=== PATIENT | male | born 1980 | race Caucasian/White ===

== ENCOUNTER 2021-02-28 16:52 | Emergency (ER) | payer BC, MEDICAID, SELFPAY ==
[2021-02-28 17:07] VITALS: BP 131/77; PULSE 66; RESP 16; TEMP 36.2; O2SAT 96; BMI 34.1
--- NOTE | 2021-02-28 17:43 | ED_ITS ---
HPI - Dental/Oral General: Chief complaint: Dental/Oral Stated complaint: Mouth/Tooth Pain Time Seen by Provider: 02/28/21 17:14 History of Present Illness: HPI Narrative: Patient is a 40-year-old male who comes to the ED with dental pain. Symptoms have been going on for couple weeks now. Yesterday started developing some right mandible swelling and today woke up and had more swelling on the right side of face. Dental pain is located around tooth #31 and 30. He rates the dental pain about a 7 out of 10. He has seen a dentist about his dental pain a couple weeks ago and they set up an appointment for him to have dental abscess removed early in April. When the facial swelling popped up yesterday called around and the dentist told him to go to the ED to get put on some antibiotics. Associated symptoms: Denies fever(s) or odynophagia Review of Systems Const: Denies: fever(s), chills or fatigue Eyes: Denies: change in vision or eye discomfort ENMT: Reports: dental pain; Denies: throat pain, odynophagia, nasal discharge or nasal congestion Card: Denies: chest pain, palpitations, edema, swelling of feet/ankles, dyspnea on exertion or orthopnea Resp: Denies: dyspnea, productive cough or non-productive cough GI: Denies: abdominal pain, nausea, vomiting, diarrhea, constipation or hematochezia : Denies: flank pain, difficulty urinating, dysuria or hematuria Musc: Denies: neck pain, back pain or extremity swelling Skin/Breast: Denies: rash or new lesions Neuro: Denies: headache(s), numbness in extremities or weakness in extremities [facility] ED PFSH: Social History Smoking and tobacco status: never smoked Physical Exam Const: COMMON NORMALS: no acute distress, patient oriented x3, healthy appearing and alert GENERAL APPEARANCE: cooperative and comfortable HENMT: COMMON NORMALS: normocephalic HEAD & SCALP: normocephalic FACE & SINUS: edema on the right mandible MOUTH: Normal oral and palatal mucosa present TEETH & GINGIVA: Yes caries (Dental caries around tooth #30 and 31.) THROAT: posterior oropharynx normal and uvula midline Neck/C-Spine: COMMON NORMALS: supple GENERAL: Yes normal visual inspection Resp: COMMON NORMALS: normal respiratory effort, No retractions, No use of accessory muscles and clear to auscultation bilaterally AUSCULTATION: clear to auscultation bilaterally Cardio: COMMON NORMALS: regular rate, regular rhythm, S1 normal heart sound present, S2 normal heart sound present, No gallops present (Cardio), No clicks present (Cardio), No murmurs present (Cardio) and Peripheral pulses 2+ throughout RATE: regular rate RHYTHM: regular rhythm HEART SOUNDS: S1 normal heart sound present and S2 normal heart sound present PERIPHERAL PULSES: Peripheral pulses 2+ throughout GI: COMMON NORMALS: Normal to inspection, nondistended, normoactive bowel sounds present, Soft to palpation, non-tender and no masses PALPATION: Yes Soft to palpation : COMMON NORMALS: Yes no CVA tenderness BLADDER/KIDNEY EXAM: Yes no CVA tenderness Back/Pelvis: COMMON NORMALS: no CVA tenderness Extremity: COMMON NORMALS: normal to inspection Neuro: COMMON NORMALS: patient oriented x3 and moves all extremities SENSORIUM/ORIENTATION: Yes alert Skin: GENERAL SKIN EXAM: dry skin Course Vital Signs: Vital signs: Vital Signs Temperature 97.1 F L 02/28/21 17:07 Pulse Rate 66 02/28/21 17:07 Respiratory Rate 16 02/28/21 17:07 Blood Pressure 131/77 02/28/21 17:07 Pulse Oximetry 96 02/28/21 17:07 MDM - Dental/Oral MDM Narrative: Medical decision making narrative: Patient is a 40-year-old male comes to the ED with dental pain. He has an appointment set up with his dentist in early April to fix dental pain issue. Vital stable. Patient appears nontoxic and in no acute distress. Patient was given a dose of clindamycin while here in the ED and hydrocodone. He was discharged home with a prescription for clindamycin and ibuprofen 800 mg and told to follow-up with his dentist at his next schedule appointment. Return to ED precautions given. Patient understood and agreed with plan. Discharge Plan Discharge Patient Disposition: Home Clinical Impression: Dental infection Condition: Stable Prescriptions: New clindamycin HCl 150 mg capsule 300 mg PO QID 7 Days Qty: 56 RF: 0 ibuprofen 800 mg tablet 800 mg PO Q8H PRN (Reason: pain) Qty: 20 RF: 0 No Action No Known Home Medications RF: 0 Discharge Orders: Discharge ED (Routine); Ordered 02/28/21 Ordered By: Sergio Briggs Referrals: Kyle Lee FNP [Primary Care Provider] - Discharge Diet: Regular Discharge Activity: Resume usual activity Patient Instructions: Dental Abscess (ED), Toothache (ED) Activity Restrictions/Additional Instructions: Follow-up with dentist at your next scheduled appointment for further treatment evaluation of dental pain. Take medications as prescribed. Return to the ER or your medical provider if condition worsens. Please read and understand discharge instructions. Thank you for choosing [facility] for your healthcare needs today. Please realize this is an emergency room and that we are providing you with a medical screening exam and this may not be complete and all inclusive of all the testing and or work up that you may need to determine your ailment or severity of your illness. It is very important that you follow up as instructed or that you return to the Emergency Department should you have concerns or if your condition changes or worsens in any way. Coding Level of Care Code ED Print Developer for Laure Batista Exam Comprehensive
[2021-02-28] MEDS: clindamycin 150 mg Capsule 300 MG PO (17:50)
[2021-02-28] MEDS: HYDROcodone-acetaminophen 7.5-325 mg Tablet 1 TAB PO (17:50)
== END 2021-02-28 17:56 | disposition home or self-care (01) ==
PROVIDERS: Emergency Provider Physician Assistant; PCP Nurse Practitioner Family
DX: K04.7 Periapical abscess without sinus (principal)
CPT/HCPCS: 99283

== ENCOUNTER 2021-10-12 11:49 | Emergency (ER) | payer BC, MEDICAID, SELFPAY ==
[2021-10-12 12:04] VITALS: BP 132/82; PULSE 77; RESP 16; TEMP 36.6; O2SAT 98
--- NOTE | 2021-10-12 12:38 | XRR_ITS ---
PROCEDURE INFORMATION: Exam: XR Left Forearm Exam date and time: 10/12/2021 12:50 PM Age: 41 years old Clinical indication: Pain; Lower or forearm; Left; Additional info: Forearm pain TECHNIQUE: Imaging protocol: Radiologic exam of the Left forearm. Views: 2 views. COMPARISON: No relevant prior studies available. FINDINGS: Bones/joints: Normal. Soft tissues: Normal. XR/XR forearm LT 2V [id number] IMPRESSION: No acute findings.
--- NOTE | 2021-10-12 12:38 | XRR_ITS ---
PROCEDURE INFORMATION: Exam: XR Left Elbow Exam date and time: 10/12/2021 12:50 PM Age: 41 years old Clinical indication: Pain; Elbow; Left; Additional info: Elbow pain TECHNIQUE: Imaging protocol: Radiologic exam of the Left elbow. Views: 1 or 2 views. COMPARISON: No relevant prior studies available. FINDINGS: Bones/joints: Normal. Soft tissues: Normal. XR/XR elbow LT 2V [id number] IMPRESSION: No acute findings.
--- NOTE | 2021-10-12 12:40 | W.ED.GENADLT ---
HPI - General Adult General: Chief complaint: Extremity Injury, Upper Stated complaint: left arm pain Time Seen by Provider: 10/12/21 12:38 History of Present Illness: Patient is a 41-year-old male with no significant past medical history presents the emergency room with concerns of left forearm and elbow pain for the last 3 weeks. Patient first noticed the pain after picking up a increased slab 3 weeks ago. Since then, patient has been having persistent pain. Patient tells me that he has a hard time with supination of the left forearm. Patient denies any trauma or injuries or fall. Patient does not take anything [id number]. No other complaints currently. Onset:3 weeks ago Duration:3 weeks Location:home Severity:mild Associated symptoms: Deny chest pain, dyspnea, nausea, rash, palpitations or vomiting Review of Systems Const: Denies: fever(s) or chills Eyes: Denies: change in vision ENMT: Denies: mouth pain Card: Denies: chest pain or palpitations Resp: Denies: dyspnea or non-productive cough GI: Denies: abdominal pain, nausea, vomiting or diarrhea : Denies: dysuria Musc: Reports: extremity pain (+L forearm and elbow pain and pain with L forearm rotation) Skin/Breast: Denies: rash or new lesions Neuro: Denies: weakness in extremities Psych: Reports: other (Normal mood) Paresh/Lymph: Denies: easy bruising PFSH ED PFSH: Medical History No pertinent past medical history Social History Smoking and tobacco status: never smoked Alcohol intake: never Substance/Drug Use: never Physical Exam Const: COMMON NORMALS: alert HENMT: COMMON NORMALS: atraumatic HEAD & SCALP: atraumatic MOUTH: moist mucous membranes not abnormal Eye: COMMON NORMALS: EOMs intact bilaterally and conjunctivae normal CONJUNCTIVA: Yes conjunctivae normal Neck/C-Spine: COMMON NORMALS: full ROM and supple Resp: COMMON NORMALS: normal respiratory effort and clear to auscultation bilaterally AUSCULTATION: clear to auscultation bilaterally Cardio: COMMON NORMALS: regular rate RATE: regular rate GI: COMMON NORMALS: Soft to palpation and non-tender PALPATION: Yes Soft to palpation Extremity: COMMON NORMALS: full ROM NARRATIVE EXTREMITY EXAM: + Left supinator muscle tenderness palpation, patient is unable to supinate due to significant pain, range of motion of the left elbow intact, cap refills less than 3 seconds in the left distal digits, sensation tact in the radial/ulnar/median distribution of the left hand Neuro: SENSORIUM/ORIENTATION: Yes alert MOTOR EXAM: No Abnormal motor strength present and Other motor observations present (no focal motor deficits) Psych: COMMON NORMALS: speech normal SPEECH: Yes normal speech MOOD & AFFECT: Yes euthymic mood Course Vital Signs: Vital signs: Vital Signs Temperature 97.8 F 10/12/21 12:04 Pulse Rate 77 10/12/21 12:04 Respiratory Rate 16 10/12/21 12:04 Blood Pressure 132/82 10/12/21 12:04 Pulse Oximetry 98 10/12/21 12:04 MDM - General Adult Medical Decision Making 41-year-old male presenting to the emergency room with left supinator muscle area tenderness. Neurovascular exam intact on the left upper extremity. X-ray did not show any focal signs of occult fractures. I suspect the patient has may have supinator muscle tear or injury. Rx: Tylenol, lidocaine patch, and menthol PRN pain, sling for comfort I have given patient follow up with our counseling case manager to be seen by our outpatient Orthopedics for evaluation of muscle injruies. Patient aware of a call from our counseling case manager to schedule for appointment(s) and verbalizes understanding of the importance of following up. Disposition: Discharge. Patient counseled regarding diagnostic impression, treatment plan. Patient given ED strict return precautions to return for continuation, worsening, or development of new symptoms. Instructed to f/u w/ PCP/orthopedics regarding symptoms today. Patient verbalized understanding. Lab Data Radiology Impressions Elbow X-Ray 10/12/21 12:38 IMPRESSION: No acute findings. Forearm X-Ray 10/12/21 12:38 IMPRESSION: No acute findings. Imaging Data Other Imaging: Radiologist's impression: [address] [place] [address] XRay Report Signed Patient: Gurvinder Packer Unit #: [id number] : 1980 Age/Sex: 41 / M ADM Date: 10/12/21 Loc: ER Room/Bed: Attending Dr: Ordering Provider/Ordering MD: Rikki Goodman MD Date of Service: 10/12/21 Procedure(s): XR forearm LT 2V 78264 Accession Number(s): [id number] Report Number: [id number] PROCEDURE INFORMATION: Exam: XR Left Forearm Exam date and time: 10/12/2021 12:50 PM Age: 41 years old Clinical indication: Pain; Lower or forearm; Left; Additional info: Forearm pain TECHNIQUE: Imaging protocol: Radiologic exam of the Left forearm. Views: 2 views. COMPARISON: No relevant prior studies available. FINDINGS: Bones/joints: Normal. Soft tissues: Normal. XR/XR forearm LT 2V [id number] IMPRESSION: No acute findings. ? Dictated By: Demar Nava Signed By: Demar Nava Signed Date/Time: 10/12/21 1343 DD/ [address] [address] XRay Report Signed Patient: Gurvinder Packer Unit #: [id number] : 1980 Age/Sex: 41 / M ADM Date: 10/12/21 Loc: ER Room/Bed: Attending Dr: Ordering Provider/Ordering MD: Rikki Goodman MD Date of Service: 10/12/21 Procedure(s): XR elbow LT 2V 01204 Accession Number(s): [id number] Report Number: [id number] PROCEDURE INFORMATION: Exam: XR Left Elbow Exam date and time: 10/12/2021 12:50 PM Age: 41 years old Clinical indication: Pain; Elbow; Left; Additional info: Elbow pain TECHNIQUE: Imaging protocol: Radiologic exam of the Left elbow. Views: 1 or 2 views. COMPARISON: No relevant prior studies available. FINDINGS: Bones/joints: Normal. Soft tissues: Normal. XR/XR elbow LT 2V [id number] IMPRESSION: No acute findings. ? Dictated By: Demar Nava Signed By: Demar Nava Signed Date/Time: 10/12/21 1344 DD/ 1250 Discharge Plan Discharge Patient Disposition: Home Clinical Impression: Elbow pain, Left forearm pain Condition: Stable Prescriptions: New acetaminophen 500 mg tablet 500 mg PO Q6H PRN (Reason: pain) 5 Days Qty: 20 0RF lidocaine 5 % adhesive patch,medicated 1 patch topical DAILY PRN (Reason: pain) 30 Days Qty: 30 0RF Rx Instructions: leave on most painful area for up to 12 hrs Biofreeze (menthol) 5 % gel 1 ea topical BID PRN (Reason: pain) 10 Days Qty: 1 0RF No Action ibuprofen 800 mg tablet 800 mg PO Q8H PRN (Reason: pain) Qty: 20 0RF Discharge Orders: Discharge ED (Routine); Ordered 10/12/21 Ordered By: Rikki Goodman Referrals: Kyle Lee FNP [Primary Care Provider] - Discharge Diet: Advance as tolerated Discharge Activity: Increase activity as tolerated Activity Restrictions/Additional Instructions: Come back if you have any new or concerning issues. Our counseling case manager will have you follow-up with Orthopedics in the next few days for your supinator muscle injury. You would be expected to have a phone call with our counseling case manager who will put you on the schedule. You can expect a call from us in the next 2-3 days. If you don't hear from us, call us back in the emergency room at [phone]. Coding Level of Care Code ED Job Development Specialist for Laure Batista Exam Comprehensive
--- NOTE | 2021-10-15 11:27 | DCPLANNER ---
Addendum entered by Juanita Stone 10/28/21 16:13: Patient had a follow up appointment scheduled for 10.17.21 with Darin Munoz at ortho - patient did attend appointment. Original Note: inpatient care manager rn had message to schedule a follow up appointment for patient with ortho. inpatient care manager rn sent patients information to the front office staff at the ortho clinic. Patients information will be printed and reviewed. Clinic will call patient with appointment information.
== END 2021-10-12 14:53 | disposition home or self-care (01) ==
PROVIDERS: Emergency Provider Emergency Medicine; PCP Nurse Practitioner Family
DX: M25.522 Pain in left elbow (principal); M79.632 Pain in left forearm
CPT/HCPCS: 73070; 73090; 99283

== ENCOUNTER → 2021-10-17 08:42 | Outpatient (BNVA) | payer BC, MEDICAID, SELFPAY | PROVIDERS: PCP Nurse Practitioner Family; Referring Provider Emergency Medicine; Visit Provider Physician Assistant | DX: S59.909A Unspecified injury of unspecified elbow, initial encounter (principal); X50.0XXA Overexertion from strenuous movement or load, initial encounter; M79.632 Pain in left forearm | CPT/HCPCS: 99203 ==